=== PATIENT | male | born 1935 | race Native Hawaiian/Other Pacific Islander ===

== ENCOUNTER 2019-01-24 07:55 | Outpatient (CLI) | payer OTHER, BC ==
[2019-01-24] MEDS ORDERED: ELIQUIS5 MG PO (08:24)
[2019-01-24] MEDS ORDERED: RANO500T PO (08:24)
[2019-01-24] MEDS ORDERED: NITR0.4S2 SL (08:25)
[2019-01-24] MEDS ORDERED: LIPITOR40 MG PO (08:25)
[2019-01-24] MEDS ORDERED: K-TAB20 MEQ PO (08:26)
[2019-01-24] MEDS ORDERED: ISOS60TA6 PO (08:26)
[2019-01-24] MEDS ORDERED: EZET10TA13 PO (08:27)
[2019-01-24] MEDS ORDERED: METO2.5T3 PO (08:27)
[2019-01-24] MEDS ORDERED: THERA M PLUS PO (08:28)
[2019-01-24] MEDS ORDERED: CARV3.12 PO (08:28)
[2019-01-24] MEDS ORDERED: RENA-VITE PO (08:29)
[2019-01-24] MEDS ORDERED: DIGITEK0.125 MG PO (08:29)
[2019-01-24] MEDS ORDERED: FURO20TA67 PO (08:29)
[2019-01-24] MEDS ORDERED: CLOPIDOGREL75 MG PO (08:30)
== END 2019-01-24 08:00 | disposition short-term general hospital (02) ==
LOC: AMB 07:55
DX: D64.89 Other specified anemias (principal); I21.4 Non-ST elevation (NSTEMI) myocardial infarction; E87.6 Hypokalemia; J90 Pleural effusion, not elsewhere classified
CPT/HCPCS: A0425; A0427

== ENCOUNTER 2019-01-24 11:14 | Outpatient (CLI) | payer OTHER, BC ==
[~2019-01-24 11:14] MED LIST: CARV3.12 PO; CLOPIDOGREL75 MG PO; DIGITEK0.125 MG PO; ELIQUIS5 MG PO; EZET10TA13 PO; FURO20TA67 PO; ISOS60TA6 PO; K-TAB20 MEQ PO; LIPITOR40 MG PO; METO2.5T3 PO; NITR0.4S2 SL; RANO500T PO; RENA-VITE PO; THERA M PLUS PO
== END 2019-01-24 13:03 | disposition short-term general hospital (02) ==
LOC: AMB 11:14
DX: D64.89 Other specified anemias (principal); I21.4 Non-ST elevation (NSTEMI) myocardial infarction; E87.6 Hypokalemia; J90 Pleural effusion, not elsewhere classified
CPT/HCPCS: A0425; A0427

== ENCOUNTER 2019-02-06 10:16 | Outpatient (CLI) | payer OTHER, BC ==
[2019-02-06 11:12] LABS: PLATELET COUNT 202 K/uL (142-355)
[2019-02-06 11:20] LABS: POTASSIUM 2.5 mmol/L (3.6-5.2)
== END 2019-02-06 23:45 | disposition home or self-care (01) ==
LOC: LABW 10:16
PROVIDERS: Nurse Practitioner
DX: D62 Acute posthemorrhagic anemia (principal); E53.8 Deficiency of other specified B group vitamins; K92.2 Gastrointestinal hemorrhage, unspecified; Z51.81 Encounter for therapeutic drug level monitoring
CPT/HCPCS: 36415; 80048; 82607; 83540; 83735; 85027; 85610

== ENCOUNTER 2019-02-27 08:41 | Outpatient (CLI) | payer OTHER, BC | END 2019-02-27 20:14 | disposition home or self-care (01) | LOC: LABW 08:41 | PROVIDERS: Internal Medicine Cardiovascular Disease | DX: I48.2 Chronic atrial fibrillation (principal); I25.5 Ischemic cardiomyopathy; J43.8 Other emphysema; G45.1 Carotid artery syndrome (hemispheric) | CPT/HCPCS: 36415; 80061; 80076 ==

== ENCOUNTER 2019-04-09 13:30 | Outpatient (CLI) | payer OTHER, BC ==
[2019-04-09 14:18] LABS: PLATELET COUNT 197 K/uL (142-355)
[2019-04-09 14:43] LABS: POTASSIUM 5.2 mmol/L (3.6-5.2)
== END 2019-04-09 20:09 | disposition home or self-care (01) ==
LOC: LAB 13:30
PROVIDERS: Nurse Practitioner
DX: K92.1 Melena (principal); E53.8 Deficiency of other specified B group vitamins; R53.82 Chronic fatigue, unspecified
CPT/HCPCS: 80053; 82607; 82728; 83540; 85027